=== PATIENT | male | born 1945 | race Caucasian/White ===

== ENCOUNTER 2022-04-15 19:07 | Inpatient (IN) | payer MEDICARE, MEDICAID, OTHER ==
[~2022-04-15] VITALS: Ht 157.5 cm; Wt 66.4 kg
[2022-04-15 21:12] LABS: BASOPHILS % 0.6 % (0.0-2.0); EOSINOPHILS % 1.7 % (0.0-5.0); HEMATOCRIT. 41.2 % (42.0-52.0); HEMOGLOBIN. 13.4 g/dL (14.0-18.0); LYMPHOCYTES % 18.5 % (20.0-50.0); MEAN CORPUSCULAR HEMOGLOBIN 31.7 pg (28.0-32.0); MEAN CORPUSCULAR VOLUME 97.4 fL (80.0-94.0); MEAN PLATELET VOLUME 8.1 fl (7.4-10.4); MONOCYTES % 7.6 % (2.0-8.0); NEUTROPHILS % 71.6 % (40.0-76.0); PLATELET 319 x1000/uL (130-400); RED BLOOD CELL COUNT 4.23 mill/uL (4.7-6.1); RED CELL DISTRIBUTION WIDTH 14.8 % (11.6-14.6)
[2022-04-15 21:20] LABS: CHLORIDE 109 mEq/L (98-107)
[2022-04-16 08:00] VITALS: BP 141/98
[2022-04-16 11:19] VITALS: BP 141/99
[2022-04-16 12:00] VITALS: BP 133/99
[2022-04-16] MEDS ORDERED: ACETAMINOPHEN 325MG TABLET PO PRN (12:30)
[2022-04-16] MEDS ORDERED: ONDANSETRON HCL 4MG/2ML INJ IV PRN (12:30)
[2022-04-16] MEDS: METOPROLOL TARTRATE 25MG TABLET PO SCH ×2 (12:50→21:34)
[2022-04-16 15:48] LABS: PROTHROMBIN TIME 10.9 sec (9.6-11.0)
[2022-04-16 16:00] VITALS: BP 153/94
[2022-04-16 20:00] VITALS: BP 163/102
[2022-04-16] MEDS: ENOXAPARIN 80MG/0.8ML SYR SUBCUT SCH (21:34)
[2022-04-17] VITALS: BP 128/89
[2022-04-17 04:00] VITALS: BP 142/99
[2022-04-17 08:00] VITALS: BP 138/72
[2022-04-17 08:15] LABS: BASOPHILS % 0.6 % (0.0-2.0); EOSINOPHILS % 2.1 % (0.0-5.0); HEMATOCRIT. 43.1 % (42.0-52.0); HEMOGLOBIN. 14.3 g/dL (14.0-18.0); LYMPHOCYTES % 19.8 % (20.0-50.0); MEAN CORPUSCULAR HEMOGLOBIN 31.7 pg (28.0-32.0); MEAN CORPUSCULAR VOLUME 95.8 fL (80.0-94.0); MEAN PLATELET VOLUME 8.6 fl (7.4-10.4); MONOCYTES % 6.8 % (2.0-8.0); NEUTROPHILS % 70.7 % (40.0-76.0); PLATELET 313 x1000/uL (130-400); RED CELL DISTRIBUTION WIDTH 14.4 % (11.6-14.6)
[2022-04-17 08:44] LABS: CHLORIDE 109 mEq/L (98-107)
[2022-04-17] MEDS: METOPROLOL TARTRATE 25MG TABLET PO SCH (08:44)
[2022-04-17] MEDS: ENOXAPARIN 80MG/0.8ML SYR SUBCUT SCH ×2 (08:44→21:22)
[2022-04-17 12:00] VITALS: BP 136/89
[2022-04-17 16:00] VITALS: BP 110/85
[2022-04-17] MEDS: METOPROLOL SUCCINATE 50MG ER TABLET PO SCH (17:35)
[2022-04-17 20:00] VITALS: BP 115/75
[2022-04-18] VITALS: BP 110/88
[2022-04-18 04:00] VITALS: BP 121/66
[2022-04-18 06:59] LABS: BASOPHILS % 0.7 % (0.0-2.0); EOSINOPHILS % 2.2 % (0.0-5.0); HEMATOCRIT. 41.7 % (42.0-52.0); HEMOGLOBIN. 13.8 g/dL (14.0-18.0); LYMPHOCYTES % 24.7 % (20.0-50.0); MEAN CORPUSCULAR HEMOGLOBIN 31.8 pg (28.0-32.0); MEAN CORPUSCULAR VOLUME 96.1 fL (80.0-94.0); MEAN PLATELET VOLUME 8.5 fl (7.4-10.4); MONOCYTES % 6.9 % (2.0-8.0); NEUTROPHILS % 65.5 % (40.0-76.0); PLATELET 307 x1000/uL (130-400); RED BLOOD CELL COUNT 4.34 mill/uL (4.7-6.1); RED CELL DISTRIBUTION WIDTH 14.7 % (11.6-14.6)
[2022-04-18 07:55] VITALS: BP 143/97
[2022-04-18] MEDS: METOPROLOL SUCCINATE 50MG ER TABLET PO SCH (08:31)
[2022-04-18] MEDS: ENOXAPARIN 80MG/0.8ML SYR SUBCUT SCH ×2 (08:32→20:19)
[2022-04-18 12:00] VITALS: BP 105/71
[2022-04-18 15:59] VITALS: BP 121/77
[2022-04-18 20:00] VITALS: BP 121/79
[2022-04-19] VITALS: BP 116/77
[2022-04-19 04:00] VITALS: BP 139/91
[2022-04-19 07:28] LABS: BASOPHILS % 0.6 % (0.0-2.0); EOSINOPHILS % 1.9 % (0.0-5.0); HEMATOCRIT. 42.4 % (42.0-52.0); HEMOGLOBIN. 13.9 g/dL (14.0-18.0); LYMPHOCYTES % 25.9 % (20.0-50.0); MEAN CORPUSCULAR HEMOGLOBIN 31.4 pg (28.0-32.0); MEAN CORPUSCULAR VOLUME 95.9 fL (80.0-94.0); MEAN PLATELET VOLUME 8.6 fl (7.4-10.4); MONOCYTES % 7.6 % (2.0-8.0); PLATELET 299 x1000/uL (130-400); RED BLOOD CELL COUNT 4.42 mill/uL (4.7-6.1); RED CELL DISTRIBUTION WIDTH 14.6 % (11.6-14.6)
[2022-04-19 08:00] VITALS: BP 134/82
[2022-04-19] MEDS: METOPROLOL SUCCINATE 50MG ER TABLET PO SCH (08:37)
[2022-04-19] MEDS: ENOXAPARIN 80MG/0.8ML SYR SUBCUT SCH (08:37)
[2022-04-19 12:00] VITALS: BP 142/89
[2022-04-19 16:00] VITALS: BP 140/85
[2022-04-19 20:00] VITALS: BP 122/98
[2022-04-19] MEDS: APIXABAN 5 MG TABLET PO SCH (20:11)
[2022-04-20] VITALS: BP 101/58
[2022-04-20 04:00] VITALS: BP 107/64
[2022-04-20 08:00] VITALS: BP 149/77
[2022-04-20] MEDS: METOPROLOL SUCCINATE 50MG ER TABLET PO SCH (08:29)
[2022-04-20] MEDS: APIXABAN 5 MG TABLET PO SCH ×2 (08:29→17:04)
[2022-04-20 12:00] VITALS: BP 121/75
[2022-04-20 16:00] VITALS: BP 119/78
[2022-04-20 20:00] VITALS: BP 122/69
[2022-04-20] MEDS: ATORVASTATIN CALCIUM 40MG TABLET PO SCH (20:50)
[2022-04-21] VITALS (7 sets, daily range): BP systolic 129–149; BP diastolic 62–87
[2022-04-21 07:26] LABS: FOLIC ACID (FOLATE) SERUM 7.3 ng/mL (>5.38)
[2022-04-21 08:03] LABS: ETHANOL BLOOD < 10 mg/dL; HDL CHOLESTEROL 24 mg/dL (40-59); LDL CHOLESTEROL 78 mg/dL (5-100); T4 FREE 1.24 ng/dL (0.76-1.46)
[2022-04-21] MEDS: APIXABAN 5 MG TABLET PO SCH ×2 (08:56→17:38)
[2022-04-21] MEDS: METOPROLOL SUCCINATE 50MG ER TABLET PO SCH (08:57)
[2022-04-21] MEDS ORDERED: CYANOCOBALAMIN 1000MCG/ML VIAL IM SCH (15:00)
[2022-04-21] MEDS: ATORVASTATIN CALCIUM 40MG TABLET PO SCH (20:12)
== END 2022-04-21 23:38 | DRG 308 ==
LOC: ER 19:07 → 7EST 04-16 05:21
PROVIDERS: ADMIT Internal Medicine; ATTEND Internal Medicine
DX: I48.91 Unspecified atrial fibrillation (principal); G93.41 Metabolic encephalopathy; I63.81 Other cerebral infarction due to occlusion or stenosis of small artery; E44.1 Mild protein-calorie malnutrition; N17.9 Acute kidney failure, unspecified; R47.01 Aphasia; E11.9 Type 2 diabetes mellitus without complications; D64.9 Anemia, unspecified; G93.89 Other specified disorders of brain; I10 Essential (primary) hypertension; E53.8 Deficiency of other specified B group vitamins; R26.89 Other abnormalities of gait and mobility; R47.1 Dysarthria and anarthria; R53.81 Other malaise; R79.89 Other specified abnormal findings of blood chemistry; Z68.26 Body mass index [BMI] 26.0-26.9, adult
CPT/HCPCS: 36415; 70551; 71045; 80048; 80053; 80061; 80320; 82140; 82607; 82746; 83036; 83880; 84439; 84443; 84481; 85025; 92523; 92610; 93005; 93306; 93880; 97116; 97162; 97166; 97535; 99285; J1650; J3420; G0480